=== PATIENT | male | born 1965 | race Caucasian/White ===

== ENCOUNTER 2024-12-22 07:35 | Inpatient (IN) | payer MEDICARE ==
[2024-12-22] MEDS ORDERED: Ondansetron 4 MG Tab.DIS PO PRN (16:08)
[2024-12-22] MEDS ORDERED: Menthol 10%/Methyl Salicylate 30% 85 GM Tube TOP PRN (16:42)
[2024-12-22] MEDS: [UNRECOGNIZED DRUG - OTHER] SUBCUT SCH (17:25)
[2024-12-22] MEDS: Meropenem 1 GM SDV IVPUSH SCH (17:30)
[2024-12-22] MEDS: DOFETILIDE 250 MCG PO SCH (21:43)
[2024-12-22] MEDS: Multivitamins with Iron/Calcium/Folic Acid/Minerals Tab PO SCH (21:48)
[2024-12-23] MEDS: Sodium Chloride 0.9% 10 ML Syringe FLUSH PRN (00:34)
[2024-12-23] MEDS: DAPTOmycin 600 MG in Sodium Chloride 0.9% 12 ML IVPUSH SCH (09:42)
[2024-12-23] MEDS: Metoprolol Succinate 100 MG Tab.ER PO SCH (10:06)
[2024-12-23] MEDS: Cholecalciferol (Vitamin D3) 25 MCG Tab PO SCH (10:07)
[2024-12-24 09:17] LABS: BASOPHILS ABSOLUTE AUTO 0.0 x10-3/uL (0.0-0.3); BASOPHILS PERCENT AUTO 0.5 % (0.3-3.8); EOSINOPHILS ABSOLUTE AUTO 0.2 x10-3/uL (0.0-0.6); EOSINOPHILS PERCENT AUTO 3.2 % (0.1-6.8); LYMPHOCYTES ABSOLUTE AUTO 1.1 x10-3/uL (0.5-4.5); LYMPHOCYTES PERCENT AUTO 17.8 % (15.8-45.3); MEAN PLATELET VOLUME 9.2 fL (6.7-11.0); MONOCYTES ABSOLUTE AUTO 0.5 x10-3/uL (0.0-1.2); MONOCYTES PERCENT AUTO 7.9 % (5.5-15.2); NEUTROPHILS ABSOLUTE AUTO 4.3 x10-3/uL (1.7-6.9); NEUTROPHILS PERCENT AUTO 70.6 % (40.3-71.8); PLATELET COUNT,PLT 127 x10(3)uL (117-477); RED BLOOD CELL COUNT 4.07 x10(6)uL (3.90-5.90); RED CELL DISTRIBUTION WIDTH 16.5 % (12.4-15.0); WHITE BLOOD CELL COUNT,WBC 6.1 x10-3/uL (3.2-10.1)
[2024-12-24 09:25] LABS: ALANINE AMINOTRANSFERASE,ALT 37.0 U/L (12-36); CREATINE KINASE,CK 66.0 IU/L (60-160); CREATININE 1.1 mg/dL (0.70-1.30); EST CRCL DRUG DOSING (CG) 96.97 mL/min; ESTIMATED GFR 77.0 mL/min (>60)
[2024-12-31 06:34] LABS: BASOPHILS ABSOLUTE AUTO 0.1 x10-3/uL (0.0-0.3); BASOPHILS PERCENT AUTO 1.7 % (0.3-3.8); EOSINOPHILS ABSOLUTE AUTO 0.2 x10-3/uL (0.0-0.6); EOSINOPHILS PERCENT AUTO 4.7 % (0.1-6.8); LYMPHOCYTES ABSOLUTE AUTO 1.2 x10-3/uL (0.5-4.5); LYMPHOCYTES PERCENT AUTO 24.4 % (15.8-45.3); MEAN PLATELET VOLUME 9.0 fL (6.7-11.0); MONOCYTES ABSOLUTE AUTO 0.5 x10-3/uL (0.0-1.2); MONOCYTES PERCENT AUTO 10.1 % (5.5-15.2); NEUTROPHILS ABSOLUTE AUTO 3.0 x10-3/uL (1.7-6.9); NEUTROPHILS PERCENT AUTO 59.1 % (40.3-71.8); PLATELET COUNT,PLT 102 x10(3)uL (117-477); RED BLOOD CELL COUNT 4.10 x10(6)uL (3.90-5.90); RED CELL DISTRIBUTION WIDTH 17.3 % (12.4-15.0); WHITE BLOOD CELL COUNT,WBC 5.1 x10-3/uL (3.2-10.1)
[2024-12-31 06:42] LABS: ALANINE AMINOTRANSFERASE,ALT 52.0 U/L (12-36); CREATINE KINASE,CK 65.0 IU/L (60-160); CREATININE 1.0 mg/dL (0.70-1.30); EST CRCL DRUG DOSING (CG) 106.67 mL/min; ESTIMATED GFR 86.0 mL/min (>60)
[2024-12-31] MEDS: LIDOCAINE 1% ONE (16:37)
[2024-12-31] MEDS: DEXAMETHASONE 8 MG ONE (16:37)
[2025-01-02] MEDS: glipiZIDE 5 MG Tab.ER PO SCH (09:04)
[2025-01-04] MEDS: DAPTOmycin 600 MG in Sodium Chloride 0.9% 12 ML IVPUSH SCH (10:12)
[2025-01-05] MEDS: Meropenem 1 GM SDV IVPUSH SCH (09:54)
[2025-01-06] MEDS: Meropenem 1 GM SDV IVPUSH SCH (07:17)
[2025-01-06] MEDS: Triamcinolone Acetonide 0.1% Crm 15 GM Tube TOP SCH (21:08)
[2025-01-07 06:54] LABS: BASOPHILS ABSOLUTE AUTO 0.1 x10-3/uL (0.0-0.3); BASOPHILS PERCENT AUTO 1.2 % (0.3-3.8); EOSINOPHILS ABSOLUTE AUTO 0.2 x10-3/uL (0.0-0.6); EOSINOPHILS PERCENT AUTO 3.5 % (0.1-6.8); LYMPHOCYTES ABSOLUTE AUTO 1.3 x10-3/uL (0.5-4.5); LYMPHOCYTES PERCENT AUTO 22.3 % (15.8-45.3); MEAN PLATELET VOLUME 8.8 fL (6.7-11.0); MONOCYTES ABSOLUTE AUTO 0.7 x10-3/uL (0.0-1.2); MONOCYTES PERCENT AUTO 11.4 % (5.5-15.2); NEUTROPHILS ABSOLUTE AUTO 3.6 x10-3/uL (1.7-6.9); NEUTROPHILS PERCENT AUTO 61.6 % (40.3-71.8); PLATELET COUNT,PLT 126 x10(3)uL (117-477); RED BLOOD CELL COUNT 4.40 x10(6)uL (3.90-5.90); RED CELL DISTRIBUTION WIDTH 17.0 % (12.4-15.0); WHITE BLOOD CELL COUNT,WBC 5.9 x10-3/uL (3.2-10.1)
[2025-01-07 07:09] LABS: ALANINE AMINOTRANSFERASE,ALT 39.0 U/L (12-36); CREATINE KINASE,CK 130.0 IU/L (60-160); CREATININE 1.1 mg/dL (0.70-1.30); EST CRCL DRUG DOSING (CG) 96.97 mL/min; ESTIMATED GFR 77.0 mL/min (>60)
[2025-01-12] MEDS: [UNRECOGNIZED DRUG - OTHER] SUBCUT SCH (08:27)
[2025-01-14 06:28] LABS: BASOPHILS ABSOLUTE AUTO 0.1 x10-3/uL (0.0-0.3); BASOPHILS PERCENT AUTO 1.5 % (0.3-3.8); EOSINOPHILS ABSOLUTE AUTO 0.2 x10-3/uL (0.0-0.6); EOSINOPHILS PERCENT AUTO 4.4 % (0.1-6.8); LYMPHOCYTES ABSOLUTE AUTO 1.2 x10-3/uL (0.5-4.5); LYMPHOCYTES PERCENT AUTO 23.9 % (15.8-45.3); MEAN PLATELET VOLUME 8.9 fL (6.7-11.0); MONOCYTES ABSOLUTE AUTO 0.5 x10-3/uL (0.0-1.2); MONOCYTES PERCENT AUTO 9.6 % (5.5-15.2); NEUTROPHILS ABSOLUTE AUTO 3.1 x10-3/uL (1.7-6.9); NEUTROPHILS PERCENT AUTO 60.6 % (40.3-71.8); PLATELET COUNT,PLT 106 x10(3)uL (117-477); RED CELL DISTRIBUTION WIDTH 16.8 % (12.4-15.0)
[2025-01-14 06:36] LABS: RED BLOOD CELL COUNT 4.30 x10(6)uL (3.90-5.90); WHITE BLOOD CELL COUNT,WBC 5.1 x10-3/uL (3.2-10.1)
[2025-01-14 06:39] LABS: ALANINE AMINOTRANSFERASE,ALT 41.0 U/L (12-36); CREATINE KINASE,CK 112.0 IU/L (60-160); CREATININE 0.9 mg/dL (0.70-1.30); EST CRCL DRUG DOSING (CG) 118.52 mL/min; ESTIMATED GFR 98.0 mL/min (>60)
[2025-01-14] MEDS: Meropenem 1 GM SDV IVPUSH SCH (14:45)
== END 2025-01-16 13:30 | disposition home or self-care (01) | DRG 540 ==
LOC: FB.MS 14:12
PROVIDERS: ADMIT Family Medicine; ATTEND Family Medicine
DX: M86.8X8 Other osteomyelitis, other site (principal); R78.81 Bacteremia; R53.1 Weakness; I25.2 Old myocardial infarction; E11.9 Type 2 diabetes mellitus without complications; T87.9 Unspecified complications of amputation stump; G43.909 Migraine, unspecified, not intractable, without status migrainosus; I48.0 Paroxysmal atrial fibrillation; R53.81 Other malaise; B95.61 Methicillin susceptible Staphylococcus aureus infection as the cause of diseases classified elsewhere; Z88.8 Allergy status to other drugs, medicaments and biological substances; Z79.82 Long term (current) use of aspirin; Z79.899 Other long term (current) drug therapy; Z95.818 Presence of other cardiac implants and grafts; Z79.01 Long term (current) use of anticoagulants; Z95.5 Presence of coronary angioplasty implant and graft; Z86.16 Personal history of COVID-19; Z98.890 Other specified postprocedural states; Z89.512 Acquired absence of left leg below knee; Z88.0 Allergy status to penicillin
CPT/HCPCS: 20610; 36415; 82270; 82550; 82565; 82947; 84460; 85014; 85018; 85025; 97110-GP; 97112-GP; 97116-GP; 97161-GP; 97165-GO; 97530-GP; 99305; 99308; 99309; 99316; A9270-GY; J0878; J1100; J2185